=== PATIENT | female | born 1930 | race Caucasian/White ===

== ENCOUNTER 2017-11-30 10:52 | Observation (INO) | payer BC, MEDICARE ==
--- NOTE | 2017-11-30 11:34 | ED ---
General Adult HPI - General Chief complaint: Syncope Stated complaint: Syncope Time Seen by Provider: 11/30/17 11:04 Source: patient, EMS, RN notes reviewed Mode of arrival: EMS Limitations: no limitations - History of Present Illness Initial comments: Patient is a pleasant 87-year-old female presenting to the emergency department complaining of syncopal episode. Episode occurred this morning. Patient was at a table when this happened. Patient did not hurt herself. Patient feels near normal at this time. Patient denies any episode similar to this previously. No chest pain. No confusion. No weakness. No dyspnea. - Related Data Home Medications Medication Instructions Recorded Confirmed Ascorbic Acid [Vitamin C] 500 mg PO DAILY 12/01/15 11/30/17 Cholecalciferol [Vitamin D3] 1,000 unit PO DAILY 12/01/15 11/30/17 Cyanocobalamin (Vitamin B-12) 5,000 mcg PO DAILY 12/01/15 11/30/17 [Vitamin B12] Homeopathic Bladder Supplement 1 tab PO DAILY 11/30/17 11/30/17 Multivitamins, Thera [Multivitamin 1 tab PO DAILY 11/30/17 11/30/17 (formulary)] Allergies Allergy/AdvReac Type Severity Reaction Status Date / Time Sulfa (Sulfonamide Allergy Nausea & Verified 11/30/17 12:21 Antibiotics) Vomiting Review of Systems ROS Statement: Those systems with pertinent positive or pertinent negative responses have been documented in the HPI. ROS Other: All systems not noted in ROS Statement are negative. Constitutional: Denies: fever Eyes: Denies: eye pain ENT: Denies: ear pain Respiratory: Denies: cough, dyspnea Cardiovascular: Denies: chest pain Endocrine: Denies: fatigue Gastrointestinal: Denies: abdominal pain Genitourinary: Denies: dysuria Musculoskeletal: Denies: back pain Skin: Denies: rash Neurological: Denies: weakness, confusion Past Medical History Past Medical History: Cancer, Eye Disorder, Pneumonia Additional Past Medical History / Comment(s): 12-01-15 sent by for evaluation of irreg heart rythym. clinical impression presyncope, afib. other past medicl hx includes Djd(hips), rt eye macular degeneration, cervical cancer had radiation, incont of urine(gets up about every 2 hours at night to urinate but is able to get back to sleep.rt.[place] wound History of Any Multi-Drug Resistant Organisms: None Reported Past Surgical History: Back Surgery, Cholecystectomy, Joint Replacement Additional Past Surgical History / Comment(s): cinthia hip replacments, cinthia cataract sx, eye injections for macular degeneration rt eye, did have sx at [facility] for cervical cancer but pt not good historian as to what was done. Past Anesthesia/Blood Transfusion Reactions: No Reported Reaction Additional Past Anesthesia/Blood Transfusion Reaction / Comment(s): clausterphobia Past Psychological History: Depression Smoking Status: Former smoker Past Alcohol Use History: None Reported Past Drug Use History: None Reported - Past Family History Daughter(s) Family Medical History: Cancer Additional Family Medical History / Comment(s): breast cancer Mother Family Medical History: Coronary Artery Disease (CAD) Additional Family Medical History / Comment(s): heart sx -not sure what was done , lived until she was 95 Father Family Medical History: Cancer Additional Family Medical History / Comment(s): not sure of original site -had cancer thru out . General Exam Limitations: no limitations General appearance: alert, in no apparent distress Head exam: Present: atraumatic Eye exam: Present: normal appearance, PERRL, EOMI. Absent: nystagmus ENT exam: Present: normal oropharynx Neck exam: Present: normal inspection Respiratory exam: Present: normal lung sounds bilaterally Cardiovascular Exam: Present: regular rate, normal rhythm GI/Abdominal exam: Present: soft. Absent: tenderness Extremities exam: Present: normal inspection. Absent: pedal edema, calf tenderness Back exam: Present: normal inspection Neurological exam: Present: alert, oriented X3, CN II-XII intact. Absent: motor sensory deficit Expanded Patient oriented to: Present: person, place, time Speech: Present: fluid speech Cranial nerves: EOM's Intact: Normal, Facial Sensation: Normal Sensory exam: Upper Extremity Light Touch: Normal, Lower Extremity Light Touch: Normal Motor strength exam: RUE: 5, LUE: 5, RLE: 5, LLE: 5 Eye Response: (4) open spontaneously Motor Response: (6) obeys commands Verbal Response: (5) oriented Psychiatric exam: Present: normal affect, normal mood Skin exam: Present: normal color Course Vital Signs 11/30/17 11/30/17 11/30/17 10:54 12:24 13:37 Temperature 97 F L Pulse Rate 72 67 66 Respiratory 16 16 18 Rate Blood Pressure 162/88 156/91 144/82 O2 Sat by Pulse 98 99 98 Oximetry EKG Findings - EKG Comments: EKG Findings:: Sinus rhythm at 72. For screening AV block with a WA of 322. QRS 108. QT 432. QTC 473. Left axis. Septal Q waves. No acute ST change. Medical Decision Making - Medical Decision Making Patient reevaluated and resting comfortably in bed. Patient and family updated on results and plan. Case was discussed in detail with practitioner Nils, who will admit for Dr. Marie, covering for Dr. keys, who admits for Dr. Pacheco. - Lab Data Result diagrams: 11/30/17 11:23 11/30/17 11:23 Lab Results 11/30/17 11/30/17 11/30/17 Range/Units 11:23 11:23 11:23 WBC 3.9 (3.8-10.6) k/uL RBC 4.67 (3.80-5.40) m/uL Hgb 14.8 (11.4-16.0) gm/dL Hct 45.5 (34.0-46.0) % MCV 97.4 (80.0-100.0) fL MCH 31.7 (25.0-35.0) pg MCHC 32.5 (31.0-37.0) g/dL RDW 12.7 (11.5-15.5) % Plt Count 209 (150-450) k/uL Neutrophils % 66 % Lymphocytes % 22 % Monocytes % 6 % Eosinophils % 4 % Basophils % 0 % Neutrophils # 2.5 (1.3-7.7) k/uL Lymphocytes # 0.8 L (1.0-4.8) k/uL Monocytes # 0.2 (0-1.0) k/uL Eosinophils # 0.2 (0-0.7) k/uL Basophils # 0.0 (0-0.2) k/uL PT (9.0-12.0) sec INR (<1.2) APTT (22.0-30.0) sec Sodium 138 (137-145) mmol/L Potassium 4.1 (3.5-5.1) mmol/L Chloride 103 (98-107) mmol/L Carbon Dioxide 26 (22-30) mmol/L Anion Gap 9 mmol/L BUN 17 (7-17) mg/dL Creatinine 0.77 (0.52-1.04) mg/dL Est GFR (MDRD) Af Amer >60 (>60 ml/min/1.73 sqM) Est GFR (MDRD) Non-Af >60 (>60 ml/min/1.73 sqM) Glucose 131 H (74-99) mg/dL Calcium 9.3 (8.4-10.2) mg/dL Total Bilirubin 0.9 (0.2-1.3) mg/dL AST 21 (14-36) U/L ALT 19 (9-52) U/L Alkaline Phosphatase 56 (38-126) U/L Total Creatine Kinase 44 (30-135) U/L CK-MB (CK-2) 1.1 (0.0-2.4) ng/mL CK-MB (CK-2) Rel Index 2.5 Troponin I <0.012 (0.000-0.034) ng/mL Total Protein 6.8 (6.3-8.2) g/dL Albumin 3.7 (3.5-5.0) g/dL Urine Color Urine Appearance (Clear) Urine pH (5.0-8.0) Ur Specific [place] (1.001-1.035) Urine Protein (Negative) Urine Glucose (UA) (Negative) Urine Ketones (Negative) Urine Blood (Negative) Urine Nitrite (Negative) Urine Bilirubin (Negative) Urine Urobilinogen (<2.0) mg/dL Ur Leukocyte Esterase (Negative) Urine WBC (0-5) /hpf Urine Bacteria (None) /hpf Urine Mucus (None) /hpf 11/30/17 11/30/17 Range/Units 11:23 12:22 WBC (3.8-10.6) k/uL RBC (3.80-5.40) m/uL Hgb (11.4-16.0) gm/dL Hct (34.0-46.0) % MCV (80.0-100.0) fL MCH (25.0-35.0) pg MCHC (31.0-37.0) g/dL RDW (11.5-15.5) % Plt Count (150-450) k/uL Neutrophils % % Lymphocytes % % Monocytes % % Eosinophils % % Basophils % % Neutrophils # (1.3-7.7) k/uL Lymphocytes # (1.0-4.8) k/uL Monocytes # (0-1.0) k/uL Eosinophils # (0-0.7) k/uL Basophils # (0-0.2) k/uL PT 10.9 (9.0-12.0) sec INR 1.1 (<1.2) APTT 21.9 L (22.0-30.0) sec Sodium (137-145) mmol/L Potassium (3.5-5.1) mmol/L Chloride (98-107) mmol/L Carbon Dioxide (22-30) mmol/L Anion Gap mmol/L BUN (7-17) mg/dL Creatinine (0.52-1.04) mg/dL Est GFR (MDRD) Af Amer (>60 ml/min/1.73 sqM) Est GFR (MDRD) Non-Af (>60 ml/min/1.73 sqM) Glucose (74-99) mg/dL Calcium (8.4-10.2) mg/dL Total Bilirubin (0.2-1.3) mg/dL AST (14-36) U/L ALT (9-52) U/L Alkaline Phosphatase (38-126) U/L Total Creatine Kinase (30-135) U/L CK-MB (CK-2) (0.0-2.4) ng/mL CK-MB (CK-2) Rel Index Troponin I (0.000-0.034) ng/mL Total Protein (6.3-8.2) g/dL Albumin (3.5-5.0) g/dL Urine Color Light Yellow Urine Appearance Clear (Clear) Urine pH 6.5 (5.0-8.0) Ur Specific [place] 1.007 (1.001-1.035) Urine Protein Negative (Negative) Urine Glucose (UA) Negative (Negative) Urine Ketones Negative (Negative) Urine Blood Negative (Negative) Urine Nitrite Negative (Negative) Urine Bilirubin Negative (Negative) Urine Urobilinogen <2.0 (<2.0) mg/dL Ur Leukocyte Esterase Small H (Negative) Urine WBC 2 (0-5) /hpf Urine Bacteria Rare H (None) /hpf Urine Mucus Rare H (None) /hpf - Radiology Data Radiology results: report reviewed (Chest x-ray shows chronic changes and cardiomegaly. Computed tomography scan of the brain shows no acute hemorrhage. Age indeterminate lacunar injury. Atrophy and small vessel changes.) Disposition Clinical Impression: Syncope Disposition: ADMITTED IP TO THIS HOSP Referrals: Abel Silva MD [Primary Care Provider] - 1-2 days Decision Time: 13:50
[2017-11-30 11:42] LABS: Basophils % (A) 0 %; Eosinophils # (A) 0.2 k/uL (0-0.7); Eosinophils % (A) 4 %; HCT 45.5 % (34.0-46.0); HGB 14.8 gm/dL (11.4-16.0); Lymphocytes # (A) 0.8 k/uL (1.0-4.8); Lymphocytes % (A) 22 %; MCH 31.7 pg (25.0-35.0); MCHC 32.5 g/dL (31.0-37.0); MCV 97.4 fL (80.0-100.0); Mean Platelet Volume 6.8; Monocytes # (A) 0.2 k/uL (0-1.0); Monocytes % (A) 6 %; Neutrophils # (A) 2.5 k/uL (1.3-7.7); Neutrophils % (A) 66 %; Platelet Count 209 k/uL (150-450); RBC 4.67 m/uL (3.80-5.40); RDW 12.7 % (11.5-15.5); WBC 3.9 k/uL (3.8-10.6)
[2017-11-30 11:51] LABS: ALT 19 U/L (9-52); AST 21 U/L (14-36); Albumin 3.7 g/dL (3.5-5.0); Alkaline Phosphatase 56 U/L (38-126); Anion Gap 9 mmol/L; Blood Urea Nitrogen 17 mg/dL (7-17); Calcium 9.3 mg/dL (8.4-10.2); Carbon Dioxide 26 mmol/L (22-30); Chloride 103 mmol/L (98-107); Glucose 131 mg/dL (74-99); Potassium 4.1 mmol/L (3.5-5.1); Sodium 138 mmol/L (137-145); Total Bilirubin 0.9 mg/dL (0.2-1.3); Total Protein 6.8 g/dL (6.3-8.2)
[2017-11-30 12:03] LABS: Creatine Kinase 44 U/L (30-135)
--- NOTE | 2017-11-30 12:09 | CT ---
EXAMINATION TYPE: CT brain wo con DATE OF EXAM: 11/30/2017 COMPARISON: Report dated 12/24/2015 images are unavailable. HISTORY: Syncope CT DLP: 1121 mGycm Automated exposure control for dose reduction was used. TECHNIQUE: CT scan of the head is performed without contrast. FINDINGS: 6 mm age-indeterminate right lacunar injury is seen of the anterior limb of the right int ernal capsule. There is no acute intracranial hemorrhage or midline shift identified. There is diffus e ventricular and sulcal prominence consistent with diffuse age-related cerebral atrophy. There is l ow-attenuation in the periventricular white matter consistent with chronic small vessel ischemic valerio ge. No suspicious extra-axial fluid collection. The globes are intact. Polypoid mucosal thickening, m ild in degree is seen within the maxillary sinuses and ethmoid sinuses. Mild amount of inspissated se cretions are seen within the right frontal sinus. Sphenoid sinus and mastoid air cells are well aerat ed. Calvarium is intact IMPRESSION: 1. No acute intracranial hemorrhage or midline shift. 2. Age-indeterminate right anterior limb of the internal capsule lacunar injury. 3. There is diffuse age-related cerebral atrophy and chronic small vessel ischemic change noted. 4. Chronic paranasal sinus disease.
--- NOTE | 2017-11-30 12:10 | XR ---
EXAMINATION TYPE: XR chest 2V DATE OF EXAM: 11/30/2017 COMPARISON: Chest x-ray December 24, 2015 HISTORY: Syncope and weakness. TECHNIQUE: Frontal and lateral views of the chest are obtained. FINDINGS: There is chronic parenchymal change without suspicious new focal air space opacity, pleura l effusion, or pneumothorax seen. There is patchy right basilar linear scarring and/or atelectasis re demonstrated. The cardiac silhouette size is enlarged with atherosclerotic aorta. The osseous struc tures are demineralized. IMPRESSION: Chronic changes and cardiomegaly with suspicious acute pulmonary process.
[2017-11-30 12:16] LABS: Creatine Kinase MB 1.1 ng/mL (0.0-2.4); Troponin I <0.012 ng/mL (0.000-0.034)
[2017-11-30 12:21] LABS: INR 1.1 (<1.2); Prothrombin Time 10.9 sec (9.0-12.0)
[2017-11-30 12:42] LABS: Partial Thromboplastin Time 21.9 sec (22.0-30.0)
[2017-11-30 12:42] LABS: Appearance,Urine Clear (Clear); Bacteria,Urine Rare /hpf; Bilirubin,Urine Negative (Negative); Blood,Urine Negative (Negative); Color,Urine Light Yellow; Glucose,Urine (UA) Negative (Negative); Ketones,Urine Negative (Negative); Leukocyte Esterase,Urine Small (Negative); Mucus,Urine Rare /hpf; Nitrite,Urine Negative (Negative); PH, Urine 6.5 (5.0-8.0); Protein,Urine Negative (Negative); Specific Gravity,Urine 1.007 (1.001-1.035); Urobilinogen,Urine <2.0 mg/dL (<2.0); WBC,Urine 2 /hpf (0-5)
[2017-11-30] MEDS ORDERED: NALOXONE 0.4 MG/ML 1 ML VIAL IV PRN (13:50)
--- NOTE | 2017-11-30 14:23 | US ---
EXAMINATION TYPE: US carotid duplex BILAT DATE OF EXAM: 11/30/2017 COMPARISON: US CLINICAL HISTORY: syncope. Syncope/ A-fib EXAM MEASUREMENTS: RIGHT: Peak Systolic Velocity (PSV) cm/sec ----- Right CCA: 55.7 ----- Right ICA: 65.3 ----- Right ECA: 59.2 ICA/CCA ratio: 1.2 RIGHT: End Diastole cm/sec ----- Right CCA: 12.1 ----- Right ICA: 18.2 ----- Right ECA: 12.1 LEFT: Peak Systolic Velocity (PSV) cm/sec ----- Left CCA: 48.8 ----- Left ICA: 68.0 ----- Left ECA: 65.3 ICA/CCA ratio: 1.4 LEFT: End Diastole cm/sec ----- Left CCA: 11.3 ----- Left ICA: 17.4 ----- Left ECA: 8.6 VERTEBRALS (direction of flow): Right Vertebral: Antegrade Left Vertebral: Antegrade Rhythm: Arrhythmia No significant stenosis seen IMPRESSION: 1. No hemodynamically significant stenosis is seen within either carotid arterial system. 2. Incidental note is made of cardiac arrhythmia. Correlate with EKG.
[2017-11-30] MEDS: SODIUM CHLORIDE 0.9% 1,000 ML IV SCH (16:40)
[2017-11-30 18:26] LABS: Creatine Kinase 52 U/L (30-135)
[2017-11-30 18:37] LABS: Creatine Kinase MB 1.2 ng/mL (0.0-2.4); Troponin I <0.012 ng/mL (0.000-0.034)
[2017-12-01 00:17] LABS: Creatine Kinase 39 U/L (30-135)
[2017-12-01 00:29] LABS: Creatine Kinase MB 0.9 ng/mL (0.0-2.4); Troponin I <0.012 ng/mL (0.000-0.034)
[2017-12-01 06:57] LABS: Basophils % (A) 1 %; Eosinophils # (A) 0.2 k/uL (0-0.7); Eosinophils % (A) 6 %; HCT 41.4 % (34.0-46.0); HGB 13.5 gm/dL (11.4-16.0); Lymphocytes # (A) 1.1 k/uL (1.0-4.8); Lymphocytes % (A) 31 %; MCH 31.8 pg (25.0-35.0); MCHC 32.7 g/dL (31.0-37.0); MCV 97.2 fL (80.0-100.0); Mean Platelet Volume 6.5; Monocytes # (A) 0.3 k/uL (0-1.0); Monocytes % (A) 8 %; Neutrophils # (A) 1.8 k/uL (1.3-7.7); Neutrophils % (A) 52 %; Platelet Count 194 k/uL (150-450); RBC 4.25 m/uL (3.80-5.40); RDW 12.5 % (11.5-15.5); WBC 3.5 k/uL (3.8-10.6)
[2017-12-01 07:17] LABS: ALT 21 U/L (9-52); AST 18 U/L (14-36); Albumin 3.1 g/dL (3.5-5.0); Alkaline Phosphatase 51 U/L (38-126); Anion Gap 8 mmol/L; Blood Urea Nitrogen 16 mg/dL (7-17); Calcium 9.4 mg/dL (8.4-10.2); Carbon Dioxide 25 mmol/L (22-30); Chloride 107 mmol/L (98-107); Cholesterol 171 mg/dL (<200); Glucose 87 mg/dL (74-99); HDL Cholesterol 64 mg/dL (40-60); LDL Cholesterol,Calculated 94 mg/dL (0-99); Potassium 3.8 mmol/L (3.5-5.1); Sodium 140 mmol/L (137-145); Total Bilirubin 0.9 mg/dL (0.2-1.3); Total Protein 6.1 g/dL (6.3-8.2); Triglycerides 67 mg/dL (<150)
[2017-12-01] MEDS: CYANOCOBALAMIN 500 MCG TAB PO SCH ×3 (08:25→18:05)
[2017-12-01] MEDS: ASCORBIC ACID 500 MG TAB PO SCH ×2 (08:26→18:05)
[2017-12-01] MEDS: MULTIVITAMINS, THERA 1 EACH TAB PO SCH ×2 (08:26→18:05)
[2017-12-01] MEDS: PANTOPRAZOLE 40 MG TABLET PO SCH ×2 (08:26→18:05)
[2017-12-01] MEDS: CHOLECALCIFEROL 1,000 UNIT TAB PO SCH ×2 (08:26→18:05)
[2017-12-01 08:42] VITALS: RESP 16
[2017-12-01] MEDS ORDERED: HEPARIN SODIUM,PORCINE 5,000 UNIT/ML 1 ML VIAL SQ SCH (09:00)
--- NOTE | 2017-12-01 10:17 | HP ---
HISTORY AND PHYSICAL DATE OF SERVICE: 11/30/2017 CHIEF COMPLAINT: Syncope. HISTORY OF PRESENT ILLNESS: This 87-year-old gentleman with a past medical history of multiple medical problems including history of pneumonia, history of DJD, history of macular degeneration, history of back surgery, history of cholecystectomy being followed by Dr. Silva in the outpatient setting had syncopal episode. The patient was at the table. Patient did not hurt herself and the patient taken to [facility] and admitted for further evaluation and treatment. The patient was trying to go to the bathroom. There is no history of any fever, rigors, chills. There is no history of headache. No history of hematochezia or melena at this time. PAST MEDICAL HISTORY: History of pneumonia, DJD, macular degeneration, history of cholecystectomy. MEDICATIONS: Prior to admission include home medications are: 1. Multivitamins 1 p.o. daily. 2. Homeopathic bladder. 3. Vitamin C 500 mcg p.o. daily. 4. Vitamin B12 500 mcg p.o. daily. 5. Vitamin D3 1000 p.o. daily. ALLERGIES: SULFA. FAMILY HISTORY: History of breast cancer in the family. SOCIAL HISTORY: History of smoking, no alcohol. REVIEW OF SYSTEMS: ENT: No diminished hearing or vision. CARDIOVASCULAR: No angina. RESPIRATORY: No cough. GI: No nausea. : No dysuria. NERVOUS SYSTEM: As mentioned. ALLERGY/IMMUNOLOGY: No asthma or hayfever. MUSCULOSKELETAL: As mentioned earlier. HEMATOLOGY: No history of anemia. ENDOCRINE: No history of diabetes. CONSTITUTIONAL: As mentioned earlier. DERMATOLOGY: Negative. RHEUMATOLOGY: Negative. PSYCHIATRY: As mentioned earlier. PHYSICAL EXAMINATION: Alert and oriented x3. Pulse 74, blood pressure 160/107, no orthostatic change, respiration 18, temperature 97.9, pulse ox 98% room air. HEENT: Conjunctivae normal. NECK: No jugular venous distention. CARDIOVASCULAR: S1, S2 muffled. RESPIRATORY: Breath sounds diminished in the bases. A few scattered rhonchi. No crackles. ABDOMEN: Soft, nontender. No mass palpable. LEGS: No edema no swelling. NERVOUS SYSTEM: Higher functions as mentioned earlier. Moves all four limbs. No focal deficits LYMPHATICS: No lymphadenopathy in the neck, axillae, groin. SKIN: No ulcer, rash, bleeding. LAB: CBC within normal limits. INR is 1.1. Glucose 131. UA noted. ASSESSMENT: 1. Syncope for evaluation possibly vasovagal, rule out transient ischemic attack. 2. Cardiac arrhythmia. 3. History of pneumonia. 4. History of degenerative joint disease. 5. History of macular degeneration. 6. History of cervical cancer. 7. History of back surgery. 8. Remote history of nicotine dependence. RECOMMENDATIONS AND DISCUSSION: This 87-year-old woman who presented with multiple complex medical issues, will monitor the patient closely. Continue the current management and symptomatic treatment. I recommend continue with IV hydration. Otherwise I would check the blood pressure, orthostatic vitals. Cardiology and Neurology consultation and neurovascular workup. Guarded prognosis. Further recommendations to follow. MMODL / IJN: [id number] /
--- NOTE | 2017-12-01 14:14 | ECHOF ---
Referral Reason:syncope MEASUREMENTS -------- HEIGHT: 167.6 cm WEIGHT: 59.0 kg BP: 144/82 RVIDd: 2.5 cm (< 3.3) IVSd: 0.5 cm (0.6 - 1.1) LVIDd: 4.6 cm (3.9 - 5.3) LVPWd: 0.7 cm (0.6 - 1.1) IVSs: 0.8 cm LVIDs: 3.1 cm LVPWs: 1.3 cm LAESV Index (A-L): 14.51 ml/m Ao Diam: 3.3 cm (2.0 - 3.7) AV Cusp: 1.9 cm (1.5 - 2.6) LA Diam: 2.7 cm (2.7 - 3.8) MV E Surjit: 0.86 m/s MV DecT: 286 ms MV A Surjit: 1.42 m/s MV E/A Ratio: 0.61 AV maxP.46 mmHg AV meanP.96 mmHg RAP: 5.00 mmHg RVSP: 29.89 mmHg FINDINGS -------- Resting bradycardia (HR<60bpm). This was a technically adequate study. The left ventricular size is normal. Left ventricular wall thickness is normal. Overall left vent ricular systolic function is normal with, an EF between 55 - 60 %. Sigmoid shaped septum with focal hypertrophy of the basal septum measuring up to 1.6 cm. The remaining wall thickness is normal. The right ventricle is normal in size and function. Normal LA size by volume 22+/-6 ml/m2. The right atrium is normal in size. Aortic valve is trileaflet and is mildly thickened. There is no evidence of aortic regurgitation. There is no evidence of aortic stenosis. The mitral valve leaflets are mildly thickened. There is trace to mild mitral regurgitation. Trace tricuspid regurgitation present. Right ventricular systolic pressure is normal at < 35 mmHg. There is no evidence of pulmonary hypertension. Trace/mild (physiologic) pulmonic regurgitation. The aortic root size is normal. Normal inferior vena cava with normal inspiratory collapse consistent with estimated right atrial pre ssure of 5 mmHg. The pericardium is normal. There is no pericardial effusion. CONCLUSIONS -------- 1. Resting bradycardia (HR<60bpm). 2. This was a technically adequate study. 3. The left ventricular size is normal. 4. Left ventricular wall thickness is normal. 5. Overall left ventricular systolic function is normal with, an EF between 55 - 60 %. 6. Sigmoid shaped septum with focal hypertrophy of the basal septum measuring up to 1.6 cm. The remai jake wall thickness is normal. 7. Normal LA size by volume 22+/-6 ml/m2. 8. Aortic valve is trileaflet and is mildly thickened. 9. The mitral valve leaflets are mildly thickened. 10. There is trace to mild mitral regurgitation. 11. Trace tricuspid regurgitation present. 12. Right ventricular systolic pressure is normal at < 35 mmHg. 13. There is no evidence of pulmonary hypertension. 14. Trace/mild (physiologic) pulmonic regurgitation. 15. The aortic root size is normal. 16. There is no pericardial effusion. FURNACE FITTER: Viktor Licona RDCS
[2017-12-01 16:15] VITALS: PULSE 65; TEMP 98.3
[2017-12-01 17:23] VITALS: BP 146/79
[2017-12-01] MEDS: SODIUM CHLORIDE 0.9% 1,000 ML IV SCH (18:05)
--- NOTE | 2017-12-01 22:56 | CONS ---
CONSULTATION Mrs. Devries is an 87-year-old female who is seen for cardiac evaluation. Patient's medical records were reviewed. The patient gives a history that she was sitting at the table having lunch and she suddenly felt light headed. She did not fill weak and she almost passed out. The patient was slightly clammy and there was no significant change in her color. When the EMS arrived, the patient had some irregular heart beats. The blood pressure was 130/80. The patient denied any chest pain, confusion, no weakness was noted. The patient does have a history of cardiac arrhythmia. At one time patient was told in the past that she may have atrial fibrillation but it has not been documented. Patient's home medications include vitamin C, D3, B12 and multivitamins. ALLERGIES: Allergic to sulfa. REVIEW OF THE SYSTEM: Otherwise unremarkable. PAST MEDICAL HISTORY: Includes a history of irregular heartbeat. No definite history of atrial fibrillation. Cholecystectomy, bilateral hip replacement. Bilateral cataract surgery. History of macular degeneration. PHYSICAL EXAMINATION: At present reveals 87-year-old female who does not appear to be in any acute distress. At present, the patient denies any dizziness or lightheadedness. In the emergency room, patient's blood pressure was 168/88, blood pressure now is 140/82. No significant orthostatic hypotension noted so far. HEENT examination is negative. NECK: Supple. There is no increase in jugular venous pressure. Both the carotid pulses are felt. There is no bruit. Chest is symmetrical. Heart the PMI is not felt. First and second heart sounds are normal. The lungs are clinically clear to auscultation and percussion. ABDOMEN: Soft. Extremities, peripheral pulses intact. EKG shows normal sinus rhythm, QRS conduction delay of the left bundle branch pattern. Intermittent PACs with first-degree AV block are noted. Echocardiogram reveals normal left ventricular systolic function. LABORATORY DATA: Shows a hemoglobin is 15.5, electrolytes are normal. IMPRESSION: Syncope most likely secondary to vasovagal syncope and a hypotensive episode. The patient does not have any significant arrhythmia other than the PACs. The patient's echocardiogram reveals normal. RECOMMENDATION: We will continue to hydrate the patient. We will recheck orthostatic blood pressure changes. If the patient is able to ambulate in the hallways, she can be discharged. We will recommend to schedule the patient for a 30 day event monitor as an outpatient. MMODL / IJN: [id number] /
--- NOTE | 2017-12-02 08:30 | DS ---
DISCHARGE SUMMARY DATE OF ADMISSION: 11/30/17. DATE OF DISCHARGE: 12/01/17. FINAL DIAGNOSES: 1. Syncope, likely vasovagal. 2. First-degree AV block. 3. Essential hypertension. 4. Primary osteoarthritis multiple joints bilateral. 5. Chronic urinary stress incontinence, wears brief. CONSULTATION: Dr. VC Lee from Cardiology. HOSPITAL COURSE: The patient is sitting at the breakfast, not feeling well for a short time before that and really felt sick and then patient actually got up and then passed out. Daughter happened to be there. Patient did become a bit pale and started to come around. By the time 911 first arrived the patient had definitely come back. There was no tongue biting. No seizure activity. No incontinence. Initial blood pressure recorded at 138. Patient has had no prior episodes. Admitted for the same. The patient did have a CT scan of the brain that shows some basically diffuse changes. Carotid Doppler did not show any significant stenosis. 2D echocardiogram, EF of 55-60%. It is felt that patient may have an underlying arrhythmia. Nothing was picked up on telemetry here. The patient reveals having a Holter monitor as an outpatient from [facility]. Care was discussed in detail with the patient's two daughters at the bedside. Because blood pressure is running high side, lisinopril hydrochlorothiazide is being added. Several questions were answered. The patient is doing remarkably well for age of 87. This was reinforced. EXAM: Lungs are clear. Cardiovascular: 1st and 2nd sounds normal. DC MEDICATION: Zestoretic 10/12.5 one tab p.o. daily. FOLLOWUP: Follow with Dr. Bernal in 1 week. Follow up with Dr. Abel Silva in 1 week. Patient to picker a compliance monitor from [facility] on Sunday. Discussion and discharge planning more than 35 minutes. MMODL / IJN: [id number] /
== END 2017-12-01 16:12 | disposition home or self-care (01) ==
LOC: EC 10:52 → 3OBS 13:50 → 3SUR 12-01 07:41
PROVIDERS: ADMIT Hospitalist; ATTEND Hospitalist
DX: R55 Syncope and collapse (principal); I44.0 Atrioventricular block, first degree; I10 Essential (primary) hypertension; N39.3 Stress incontinence (female) (male); H35.30 Unspecified macular degeneration; M15.9 Polyosteoarthritis, unspecified; Z88.2 Allergy status to sulfonamides; Z90.49 Acquired absence of other specified parts of digestive tract; Z87.01 Personal history of pneumonia (recurrent); Z85.41 Personal history of malignant neoplasm of cervix uteri; Z87.891 Personal history of nicotine dependence; Z86.79 Personal history of other diseases of the circulatory system
CPT/HCPCS: 99285 ×2; 36415; 93005; 93306; 80061; 80053 ×2; 82550; 82553; 84484; 85025 ×2; 85610; 85730; 81001; 71046; 93880; 70450; G0378 ×2

== ENCOUNTER → 2018-06-03 | Outpatient (CLI) | payer MEDICARE ==
--- NOTE | 2018-06-03 13:06 | XR ---
EXAMINATION TYPE: XR ribs LT DATE OF EXAM: 06/03/2018 COMPARISON: 11/30/2017 chest radiograph HISTORY: Left-sided rib pain TECHNIQUE: Oblique and frontal views of the left ribs were obtained. FINDINGS: There is diffuse osseous demineralization. Mild acromio clavicular arthropathy is incidenta lly seen as small marginal osteophytes. There is no evidence of acute displaced left rib fracture or callused healed rib fracture deformity. Within the left midlung there is a centrally lucent opacity that appears somewhat ovoid. Therefore ev aluation for pleural based lesion, pneumatocele, bleb, or very less likely loculated pneumothorax is recommended with chest CT. Midthoracic compression deformity is age indeterminant. Partial visualization of lumbar fusion is see n. Cholecystectomy clips are present within the right upper quadrant. IMPRESSION: 1. Centrally lucent left-sided opacity that appears ovoid on multiple images. Therefore further evalu ation with chest CT is recommended to evaluate for pneumatocele, bleb, pleural-based lesion or much l ess likely loculated small pleural pneumothorax. 2. No evidence of acute displaced left rib fracture or healed fracture deformity. 3. Age-indeterminate mid thoracic compression deformity. Correlate with point tenderness. If there is further concern MRI could be performed to evaluate for bone marrow edema and better assess acuity.
== END | disposition home or self-care (01) ==
LOC: RADXRMAIN 11:33
PROVIDERS: ATTEND Physician Assistant
DX: M43.8X4 Other specified deforming dorsopathies, thoracic region (principal); R91.8 Other nonspecific abnormal finding of lung field

== ENCOUNTER → 2018-06-07 | Outpatient (CLI) | payer MEDICARE ==
--- NOTE | 2018-06-07 12:59 | CT ---
EXAMINATION TYPE: CT chest wo con DATE OF EXAM: 06/07/2018 COMPARISON: 06/03/2018 left ribs radiograph's HISTORY: Solitary pulmonary nodule. Left rib pain. CT DLP: 181.4 mGycm. Automated Exposure Control for Dose Reduction was Utilized. TECHNIQUE: CT scan of the thorax is performed without IV contrast. FINDINGS: LUNGS: Area seen on prior radiograph corresponds to multifocal pleural parenchymal bandlike scarring and atelectasis with centrally lucent portion seen on the prior radiograph related to normal aerated lung. 2 mm mucus plugging is seen on series 4 image 11 and is incompletely occlusive. There is mild b ackground centrilobular emphysema. Right lower lobe solid pulmonary nodules on series 4 image 33 and 34 measuring 3 mm each. Multifocal scattered areas of subsegmental atelectasis are noted. Calcified b enign left basilar pulmonary nodule seen on series 4 image 38. There is no pleural effusion or pneumo thorax seen. The tracheobronchial tree is patent. MEDIASTINUM: Ascending thoracic aorta is mildly aneurysmal measuring 4.1 cm. Moderate coronary artery calcifications are present. Lack of IV contrast is noted to limit evaluation for mediastinal and romaine ecially hilar adenopathy. There are no definitive greater than 1 cm hilar or mediastinal lymph nodes. No cardiomegaly or pericardial effusion is seen. OTHER: There is a compression deformity of the T8 vertebral body with vertebral body height loss of l ess than 50% and no evidence of retropulsion. Again this is age indeterminant. There is a slightly ex aggerated thoracic kyphosis and multilevel moderate degenerative change of the thoracic spine. Benign -appearing calcification is incidentally seen along the gastric fundus There is partial visualization of a left lower pole renal cyst measuring at least 4.4 cm. Moderate ca lcific atheromatous changes are seen of the abdominal aorta. Gallbladder surgically absent. There is pancreatic ductal prominence, there is poorly visualized without contrast. Postsurgical changes of t he lumbar spine are partially visualized. IMPRESSION: 1. Opacity seen on the prior radiograph of the left lung base relates to curvilinear multifocal pleur al parenchymal scarring and subsegmental atelectasis. No pulmonary mass at this location. 2. Within the right lower lobe there are 2 solid 3 mm pulmonary nodules for which follow-up CT thorax in 12 months is recommended to ensure stability. 3. Redemonstration of an age indeterminant compression deformity at T8 without retropulsion. 4. Pancreatic ductal prominence although the pancreas is very ill-defined given the lack of contrast and surrounding abutting small bowel. Initial workup with ultrasound could be performed to evaluate f or ductal size. If this remains enlarged further evaluation with enhanced MRCP would be recommended.
== END | disposition home or self-care (01) ==
LOC: RADCTMAIN 11:39
PROVIDERS: ATTEND Internal Medicine
DX: R91.8 Other nonspecific abnormal finding of lung field (principal)
CPT/HCPCS: 71250

== ENCOUNTER → 2018-06-12 | Outpatient (CLI) | payer MEDICARE ==
--- NOTE | 2018-06-12 16:17 | US ---
EXAMINATION TYPE: US abdomen complete DATE OF EXAM: 06/12/2018 COMPARISON: CT chest 2018 CLINICAL HISTORY: 87-year-old female R93.8 Abnormal findings of diagnostic findings; dilated vessel o n CT at pancreas level; gallbladder removed; midline abdominal and rib pain TECHNIQUE: Multiple sonographic images of the abdomen are obtained. FINDINGS: EXAM MEASUREMENTS: Liver Length: 14.4 cm Gallbladder: surgically absent CBD: 0.8 cm Spleen: 8.5 cm Right Kidney: 10.1 x 5.6 x 2.5 cm Left Kidney: 10.6 x 5.0 x 4.9 cm Pancreas: Limited visualization. However, the splenic vein is visualized and is patent. Liver: small left lobe; periportal wall brightness Gallbladder: surgically absent Evidence for sonographic Chua's sign: no CBD: wnl for age and post cholecystectomy Spleen: wnl Right Kidney: multiple renal cysts with largest at superior pole =1.0 x 1.0 x 0.8cm; hyperechoic foc us noted as parallel lines may be vessel wall calcifications Left Kidney: larger inferior pole cyst = 4.5 x 4.1 x 3.6cm Upper IVC: wnl Abd Aorta: dilated superiorly at 2.8cm. IMPRESSION: 1. Suboptimal visualization of the pancreas. However, the splenic vein is visualized and is patent. 2. Bile duct is dilated at 8 mm, within acceptable limits for patient's age and postcholecystectomy s tatus. Correlate with alkaline phosphatase and bilirubin levels. 3. Hepatic periportal brightness may be on a technical basis. Clinically correlate as this finding ca n also be seen in the setting of hepatitis.
== END | disposition home or self-care (01) ==
LOC: RADUSWWP 10:53
PROVIDERS: ATTEND Internal Medicine
DX: K83.8 Other specified diseases of biliary tract (principal); Z90.49 Acquired absence of other specified parts of digestive tract
CPT/HCPCS: 76700

== ENCOUNTER → 2018-08-23 | Outpatient (CLI) | payer MEDICARE ==
--- NOTE | 2018-08-24 19:49 | US ---
EXAMINATION TYPE: US carotid duplex BILAT DATE OF EXAM: 08/23/2018 COMPARISON: 11/30/2017 CLINICAL HISTORY: 87-year-old female R26.89 OTHER ABNORMALITIES OF GAIT AND MOBILITY. Visual changes right eye 2 days ago TECHNIQUE: Carotid duplex ultrasound examination. In direct Doppler criteria was utilized. FINDINGS: EXAM MEASUREMENTS: RIGHT: Peak Systolic Velocity (PSV) cm/sec ----- Right CCA: 60.1 ----- Right ICA: 74.5 ----- Right ECA: 66.7 ICA/CCA ratio: 1.2 RIGHT: End Diastole cm/sec ----- Right CCA: 21.6 ----- Right ICA: 19.4 ----- Right ECA: 13.9 LEFT: Peak Systolic Velocity (PSV) cm/sec ----- Left CCA: 53.8 ----- Left ICA: 81.1 ----- Left ECA: 53.8 ICA/CCA ratio: 1.5 LEFT: End Diastole cm/sec ----- Left CCA: 19.7 ----- Left ICA: 32.6 ----- Left ECA: 8.4 VERTEBRALS (direction of flow): Right Vertebral: Antegrade Left Vertebral: Antegrade Rhythm: Arrhythmia No evidence of significant stenosis IMPRESSION: No hemodynamically significant stenosis appreciated in either internal carotid artery. Criteria for Assigning % of Stenosis / Diameter reduction (Estimation based on the indirect measurements of the internal carotid artery velocities (ICA PSV). 1. Normal (no stenosis)=ICA PSV < 125 cm/s: ratio < 2.0: ICA EDV<40 cm/s. 2. Less than 50% stenosis=ICA PSV < 125 cm/s: ratio < 2.0: ICA EDV<40 cm/s. 3. 50 to 69% stenosis=ICA PSV of 125 to 230 cm/s: ration 2.0 ? 4.0: ICA EDV 40-100 cm/s. 4. Greater than 70% stenosis to near occlusion= ICA PSV > 230 cm/s: ratio > 4.0: ICA EDV > 100 cm/s. 5. Near occlusion= ICA PSV velocities may be low or undetectable: variable ratio and ICA EDV. 6. Total occlusion=unable to detect flow.
== END | disposition home or self-care (01) ==
LOC: RADUSWWP 15:43
PROVIDERS: ATTEND Internal Medicine
DX: H59.3 Postprocedural hemorrhage, hematoma, and seroma of eye and adnexa following a procedure (principal)
CPT/HCPCS: 93880